=== PATIENT | male | born 1980 | race African-American/Black ===

== ENCOUNTER 2019-11-25 14:52 | Emergency (ER) | payer OTHER ==
[2019-11-25 15:05] VITALS: TEMP 98.6; BMI 25.7
--- NOTE | 2019-11-25 15:27 | PDOC ---
History of Present Illness - General Chief Complaint: Blood Pressure Problem Stated Complaint: HYPERTENSION Time Seen by Provider: 11/25/19 15:25 History Source: Patient - History of Present Illness Associated Symptoms: reports: weakness Past History - Medical History Allergies/Adverse Reactions: Allergies Allergy/AdvReac Type Severity Reaction Status Date / Time No Known Allergies Allergy Verified 10/16/15 12:57 Home Medications: Ambulatory Orders NK [No Known Home Medication] 10/16/15 - Psycho-Social/Smoking History Smoking Status: Yes Smoking History: Never smoked Number of Cigarettes Smoked Daily: 10 Information on smoking cessation initiated: No 'Breaking Loose' booklet given: 10/16/15 - Substance Abuse Hx (Audit-C & DAST Scrn) How often the patient has a drink containing alcohol: Never Score: In Men: 4 or > Positive; In Women: 3 or > Positive: 0 Screen Result (Pos requires Nsg. Audit-10AR): Negative Review of Systems - Review of Systems Constitutional: No: Fever Respiratory: No: Cough, Shortness of Breath Cardiac (ROS): Yes: Lightheadedness. No: Chest Pain, Palpitations, Syncope ABD/GI: No: Constipated, Diarrhea, Nausea, Vomiting, Abdominal cramping : No: Dysuria, Flank Pain Neurological: Yes: Dizziness. No: Headache, Numbness, Tingling, Weakness *Physical Exam - Vital Signs Last Vital Signs Temp Pulse Resp BP Pulse Ox 98.6 F 103 H 17 130/95 99 11/25/19 15:02 11/25/19 15:02 11/25/19 15:02 11/25/19 15:02 11/25/19 15:02 - Physical Exam General Appearance: Yes: Appropriately Dressed. No: Apparent Distress HEENT: positive: Normal Voice Neck: positive: Supple Respiratory/Chest: positive: Lungs Clear, Normal Breath Sounds. negative: Respi ratory Distress Cardiovascular: positive: Regular Rate, S1, S2 Integumentary: positive: Dry, Warm Neurologic: positive: Fully Oriented, Alert, Normal Mood/Affect ED Treatment Course - LABORATORY CBC & Chemistry Diagram: 11/25/19 16:36 11/25/19 16:36 Medical Decision Making - Medical Decision Making 11/25/19 15:26 39 yo M, no sig pmhx, here w/ lightheadedness that started a few nights ago. States at some point he checked his blood pressure and that it was 150s over 80s. Pt states he became concerned that BP was causing his sxs so pt decreased his p.o. intake for fear that his blood pressure would go up w/ food. Now feeling slightly weak and here to "be checked out" per patient. No dizziness at this point and no headache, blurred vision, focal weakness, chest pain, shortness of breath, palpitations, abdominal pain, change in bowel movements, nausea, vomiting, fever or chills. Pt currently asx. Pt well jayce w/ heart rate slightly tachy. Anxiety possible a component to pt's presentation. Will do EKG and check basic labs. Anticipate discharge with PMD follow-up 11/25/19 15:58 Pt signed out to SYEDA Lizama pending w/u Discharge - Discharge Information Problems reviewed: Yes Clinical Impression/Diagnosis: Dizziness Condition: Stable Disposition: HOME - Follow up/Referral [place] [facility] [place] [facility] [place]] - Call tomorrow - Patient Discharge Instructions Patient Printed Discharge Instructions: DI for Dizziness-Nonvertigo Additional Instructions: The cause of your symptoms are unclear at this time as your EKG and blood work were normal Please call the number in the back of the insurance card and get a list of primary care doctors who you can follow-up with - Post Discharge Activity Work/Back to School Note: Back to Work
[2019-11-25 16:41] VITALS: BP 124/86; PULSE 92
[2019-11-25 17:06] LABS: BASO % 0.1 % (0-2.0); EOS % 0.3 % (0-4.5); HEMATOCRIT 47.5 % (35.4-49); HEMOGLOBIN 16.3 GM/dL (11.7-16.9); LYMPH % 10.2 % (8-40); MCH 29.7 pg (25.7-33.7); MCHC 34.4 g/dl (32.0-35.9); MEAN CELL VOLUME 86.2 fl (80-96); MEAN PLT VOLUME 8.2 fl (7.5-11.1); MONO % 6.2 % (3.8-10.2); NEUT % 83.2 % (42.8-82.8); PLATELET COUNT 237 K/MM3 (134-434); RBC 5.51 M/mm3 (4.00-5.60); RDW 12.5 % (11.9-15.9); WHITE BLOOD COUNT 13.8 K/mm3 (4.0-10.0)
[2019-11-25 17:07] LABS: EPI CELLS 9 /uL (0-25.1); HYALINE CASTS 8 /uL (0-3.1); PH,URINE 5.5 (5.0-8.0); URINE APPEARANCE CLEAR; URINE BACTERIA 28 /uL (0-1359); URINE BILIRUBIN NEGATIVE (NEGATIVE); URINE COLOR DK YELLOW; URINE GLUCOSE (UA) NEGATIVE (NEGATIVE); URINE KETONE 1+ (NEGATIVE); URINE LEUK ESTERASE NEGATIVE (NEGATIVE); URINE NITRITE NEGATIVE (NEGATIVE); URINE PROTEIN 2+ (NEGATIVE); URINE RBC 6 /uL (0-23.9); URINE WBC 12 /uL (0-25.8)
[2019-11-25 17:30] LABS: ALBUMIN 4.5 g/dl (3.4-5.0); BILIRUBIN,TOTAL 0.7 mg/dL (0.2-1); BLOOD UREA NITROGEN 9.7 mg/dL (7-18); CALCIUM 9.7 mg/dL (8.5-10.1); CREATININE 1.3 mg/dL (0.55-1.3); POTASSIUM 4.1 mmol/L (3.5-5.1); TOT PROT 8.4 g/dl (6.4-8.2)
--- NOTE | 2019-11-25 17:33 | PDOC ---
*Physical Exam - Vital Signs Last Vital Signs Temp Pulse Resp BP Pulse Ox 98.6 F 103 H 17 130/95 99 11/25/19 15:02 11/25/19 15:02 11/25/19 15:02 11/25/19 15:02 11/25/19 15:02 - Physical Exam 11/25/19 16:28 - Physical Exam General Appearance: Nourished, Appropriately Dressed, No Distress HEENT: EOMI, Normal Voice, Hearing Grossly Normal Neck: Supple, No Lymphadenopathy (R), No Lymphadenopathy (L), No Rigidity, No Decreased range of motion Respiratory/Chest: Lungs Clear, Normal Breath Sounds. No Respiratory Distress, No Accessory Muscle Use Cardiovascular: Regular Rhythm, Regular Rate, S1, S2 Gastrointestinal/Abdominal: Normal Bowel Sounds, Soft. Non-tender, No Guarding, No Rebound, No Rigidity Musculoskeletal: Normal Inspection. No Decreased Range of Motion Extremity: Normal Capillary Refill, Normal Inspection Integumentary: Normal Color, Dry. No Rash Neurologic: sales team leader II-XII NML intact, Fully Oriented, Alert, Normal Mood/Affect, Normal Response ED Treatment Course - LABORATORY CBC & Chemistry Diagram: 11/25/19 16:36 11/25/19 16:36 Medical Decision Making - Medical Decision Making 11/25/19 17:34 Patient is a 39-year-old male who was endorsed to me by KRAEN Messina for continuation of care. He presents to the ED for dizziness for the last few days and checked his blood pressure noticed that his systolic was in the 150s. He states that secondary to noticing his blood pressure was elevated, he stopped eating thinking that this would increase his blood pressure.. He states he was concerned so he came to the ED today for evaluation. He denies any active dizziness today. He denies any chest pain, shortness of breath, n/v/d/c, headache, weakness. He does admit to smoking a lot of cigarettes and a lot of marijuana as well as not drinking any water. Plan: -Labs and EKG reviewed and within normal limits. The patient has been made aware that his WBCs are slightly elevated but this can be secondary to stress or inflammatory process. He has been made aware that he must increase his fluid intake, try and avoid alcohol, cigarettes, marijuana and should follow-up with his primary doctor. He states that he does not have a primary doctor so we will refer him to 1. -The patient has been made aware that he must follow-up with a primary doctor for further evaluation and treatment. He understands and agrees with this treatment plan and the patient is stable for discharge. He has been given strict return precautions. EKG at 1706 shows normal sinus rhythm at 81 bpm with evidence of LVH. Discharge - Discharge Information Problems reviewed: Yes Clinical Impression/Diagnosis: Dizziness Condition: Stable Disposition: HOME - Follow up/Referral Referrals: [facility] [place] [facility] [place] [Provider Group] - Call tomorrow - Patient Discharge Instructions Patient Printed Discharge Instructions: DI for Dizziness-Nonvertigo Additional Instructions: The cause of your symptoms are unclear at this time as your EKG and blood work were normal Please call the number in the back of the insurance card and get a list of primary care doctors who you can follow-up with - Post Discharge Activity Work/Back to School Note: Back to Work
--- NOTE | 2019-11-26 15:28 | EKG ---
Test Reason : Blood Pressure : / mmHG Vent. Rate : 081 BPM Atrial Rate : 081 BPM P-R Int : 166 ms QRS Dur : 104 ms QT Int : 358 ms P-R-T Axes : 077 068 050 degrees QTc Int : 415 ms NORMAL SINUS RHYTHM POSSIBLE LEFT ATRIAL ENLARGEMENT INCOMPLETE RIGHT BUNDLE BRANCH BLOCK BORDERLINE ECG WHEN COMPARED WITH ECG OF 10-SEP-2010 06:30, INCOMPLETE RIGHT BUNDLE BRANCH BLOCK IS NOW PRESENT Confirmed by APOLLO DALE, FINN ([id number]) on 11/26/2019 3:27:48 PM Referred By: Confirmed By:FINN BUSTILLOS MD
== END 2019-11-25 19:30 | disposition home or self-care (01) ==
LOC: JER 14:52
DX: R42 Dizziness and giddiness (principal)
CPT/HCPCS: 36415; 80053; 81003; 85025; 93005; 93010; 99284-25

== ENCOUNTER 2020-06-12 11:42 | Emergency (ER) | payer OTHER ==
[2020-06-12 11:51] VITALS: BP 138/90; PULSE 88; TEMP 96.1; BMI 25.9
== END 2020-06-12 16:08 | disposition home or self-care (01) ==
LOC: JER 11:42
DX: U07.1 COVID-19 (principal)
CPT/HCPCS: 99283-25; C9803; U0003

== ENCOUNTER 2023-12-05 11:42 | Emergency (ER) | payer SELFPAY ==
[2023-12-05 12:07] VITALS: BP 132/86; PULSE 86; RESP 18; TEMP 98.2; BMI 27.6
[2023-12-05 12:55] LABS: THROAT:GRP A STREP NOT DETECTED (NOTDETECTED)
== END 2023-12-05 13:30 | disposition home or self-care (01) ==
LOC: JERFT 11:42
DX: J02.8 Acute pharyngitis due to other specified organisms (principal); B97.89 Other viral agents as the cause of diseases classified elsewhere; Z20.822 Contact with and (suspected) exposure to COVID-19
CPT/HCPCS: 0241U-QW; 87651; 99283-25